=== PATIENT | female | born 1965 | race Caucasian/White ===

== ENCOUNTER 2024-02-27 12:12 | Inpatient (IN) | payer MEDICARE, OTHER ==
[2024-02-27] VITALS (7 sets, daily range): BP systolic 92–130; BP diastolic 47–82
[~2024-02-27] VITALS: Ht 165.1 cm; Wt 92.9 kg
--- OUTSIDE RECORDS SUMMARY | ~2024-02-27 | XMS | Continuity of Care Document ---
Demographics + + + | Address | [address] | | | [place] [address] | + + + | Preferred Language | Unknown | + + + | Marital Status | Unknown | + + + | Rastafari Affiliation | Unknown | + + + | Race | White | + + + | Ethnic Group | Not or | + + + Author + + + | Author | [facility] | + + + | Organization | [facility] | + + + | Address | [address] | | | [place] [address] | + + + | Phone | | + + + Care Team Providers + + + + | Care Commutator Repairer Name | Role | Phone | + + + + Unavailable | Unavailable | + + + + Allergies No information. Encounters No information. Functional Status No information. Immunizations No information. Medications No information. Problems + + + + | date | description | facility | + + + + | 2024-01-22 12:19:21 | Encounter for screening | [facility] | | | mammogram for malignant | | | | neoplasm of breast | | + + + + | 2024-01-23 00:49:24 | Encounter for screening | [facility] | | | mammogram for malignant | | | | neoplasm of breast | | + + + + Procedures No information. Results/Labs No information. Social History +--------+ + + | date | description | facility | +--------+ + + Vital Signs No information."
--- OUTSIDE RECORDS SUMMARY | ~2024-02-27 | XMS | Continuity of Care Document ---
Demographics + + + | Address | [address] | | | [place] [address] | + + + | Preferred Language | Unknown | + + + | Marital Status | Unknown | + + + | Christianity Affiliation | Unknown | + + + | Race | White | + + + | Ethnic Group | Not or | + + + Author + + + | Author | [facility] | + + + | Organization | [facility] | + + + | Address | [address] | | | [place] [address] | + + + | Phone | | + + + Care Team Providers + + + + | Care Air Traffic Control Operator Name | Role | Phone | + [...]
[~2024-02-27 12:12] MED LIST: ACETAMINOPHEN500 MG PO; ATORVASTATIN CA10 MG PO; BUPROPION XL300 MG PO; CARAFATE1 GM PO; CYANOCOBAL1000 MCG/M IM; ESCITALOPRAM OX20 MG PO; FOLIC ACID1 MG PO; GABAPENTIN100 MG PO; HYDROXYZINE HCL25 MG PO; LISINOPRIL20 MG PO; NICOTINE1 EAC2 TD; ONDANSETRON ODT4 MG PO; PANTOPRAZOLE SO40 MG PO; PRAZOSIN HCL2 MG PO; PROPRANOLOL HCL20 MG PO; TIZANIDINE HCL2 MG PO; TRAMADOL HCL50 MG PO; VITAMIN D21250 MCG PO
--- OUTSIDE RECORDS SUMMARY | 2024-02-27 12:18 | XMS ---
PreManage Notification: MANDY PHAN Security Calibration Specialist Events No recent Security Events currently on file CRITERIA MET - [facility] - 2 Visits in 30 Days CARE PROVIDERS ISAIAS QUINTANILLA Physician City Treasurer Current PHONE: Unknown Lloyd has no Care Guidelines for this patient. EKofi V[facility] COUNT (12 MO.) [facility] [address] [place] [address] TOTAL 3 NOTE: Visits indicate total known visits. ED/UCC VISIT TRACKING (12 MO.) 02/27/2024 12:12 [facility] [place] TYPE: Emergency COMPLAINT: - FALL 02/21/2024 01:56 [facility] [place] [facility] [place] TYPE: Emergency COMPLAINT: - Chest pain, unspecified DIAGNOSES: 1. Chest pain, unspecified 2. Hypoxemia 3. Cervicalgia 4. Polyneuropathy, unspecified 5. Essential (primary) hypertension 6. Vitamin B12 deficiency anemia, unspecified 7. Gastro-esophageal reflux disease without esophagitis 8. Other salvage determiner (current) drug therapy 06/09/2023 17:41 [facility] [place] TYPE: Emergency DIAGNOSES: 1. Cellulitis of abdominal wall 2. Abnormal findings on diagnostic imaging of other specified body structures 2. Essential (primary) hypertension 2. Other chcf (current) drug therapy 2. Pure hypercholesterolemia, unspecified 2. 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 - Obesity, unspecified - Obesity, unspecified - Other chronic pain - Other chronic pain - Other chcf (current) drug therapy - Other chcf (current) drug therapy - Personal history of nicotine dependence - Personal history of nicotine dependence - Personal history of other diseases of the digestive system - Personal history of other diseases of the digestive system - Problems related to living alone - Problems related to living alone - Pure hypercholesterolemia, unspecified - Pure hypercholesterolemia, unspecified - Pure hyperglyceridemia - Pure hyperglyceridemia - Unspecified intestinal obstruction, unspecified as to partial versus complete obstruction [email or web address]
[2024-02-27 13:19] LABS: BASOPHILS 1.7 % (0-2); EOSINOPHILS 2.7 % (0-6); HEMATOCRIT 29.6 % (35.0-50.0); HEMOGLOBIN 9.8 g/dL (12.0-18.0); LYMPHOCYTES 30.1 % (24-44); MCHC 32.9 g/dl (30-36); MCV 106.2 fl (81-99); MONOCYTES 8.9 % (0-12); NEUTROPHILS 56.6 % (39-80); PLATELET COUNT 326 K/uL (140-440); RBC 2.79 M/ul (4.3-5.7); RDW 13.8 (10.5-15.0)
[2024-02-27 13:30] LABS: INR 1.07 (0.80-1.30); PROTIME 13.2 Sec (11.2-14.2)
[2024-02-27 13:42] LABS: ALBUMIN 2.7 g/dL (3.4-5.0); ALBUMIN/GLOBULIN RATIO 0.69 (1.1-2.4); ANION GAP 13.8 (7-21); BILIRUBIN, TOTAL 0.5 ng/dL (0.2-1.0); BUN/CREATININE RATIO 11.45 (6.0-28.6); CALCIUM 8.8 mg/dL (8.5-10.1); CREATININE, SERUM 0.96 mg/dL (0.55-1.02); POTASSIUM 3.8 mmol/L (3.5-5.1); PROTEIN, TOTAL 6.6 g/dL (6.4-8.2)
[2024-02-27 13:53] LABS: INFLUENZA B NAA NEGATIVE (NEGATIVE); RESPIRATORY SYNCYTIAL VIR NAA NEGATIVE (NEGATIVE)
[2024-02-27] MEDS ORDERED: MAGNESIUM SULFATE 2 GM/50 ML BAG IV ONE (14:00)
[2024-02-27] MEDS ORDERED: FUROSEMIDE 40 MG/4 ML VIAL IV ONE (14:15)
[2024-02-27 14:42] LABS: AMPHETAMINES, URINE NEGATIVE (NEGATIVE); BARBITURATES, URINE NEGATIVE (NEGATIVE); BENZODIAZEPINE, URINE NEGATIVE (NEGATIVE); BUPRENORPHINE, URINE NEGATIVE (NEGATIVE); CANNABINOID, URINE NEGATIVE (NEGATIVE); COCAINE, URINE NEGATIVE (NEGATIVE); ECSTASY, URINE NEGATIVE (NEGATIVE); FENTANYL, URINE NEGATIVE (NEGATIVE); METHADONE, URINE NEGATIVE (NEGATIVE); OPIATES, URINE POSITIVE (NEGATIVE); OXYCODONE, URINE NEGATIVE (NEGATIVE); PHENCYCLIDINE, URINE NEGATIVE (NEGATIVE)
[2024-02-27 14:47] LABS: BILIRUBIN, URINE NEGATIVE (negative); BLOOD/HGB, URINE NEGATIVE (Negative); KETONE, URINE NEGATIVE (Negative); LEUK ESTERASE, URINE NEGATIVE (negative); NITRITE, URINE POSITIVE (negative)
[2024-02-27 14:53] LABS: EPITHELIAL CELLS, URINE SQUAMOUS 2+ /lpf (0-1+)
[2024-02-27 14:54] LABS: CRYSTALS, URINE NONE SEEN (0-1+); RED BLOOD CELLS, URINE 0-1 /hpf (0-5)
[2024-02-27 14:55] LABS: BACTERIA, URINE 3+ /hpf (negative); CASTS, URINE NONE SEEN \\lpf; COLLECTION TYPE, URINE CLEAN CATCH; REFLEX CULTURE, URINE No (No)
[2024-02-27] MEDS ORDERED: ACETAMINOPHEN 325 MG TAB PO PRN (15:30)
[2024-02-27] MEDS ORDERED: PROCHLORPERAZINE EDISYLATE 10 MG/2 ML VIAL IV PRN (15:30)
[2024-02-27] MEDS ORDERED: ondansetron HCL 4 MG/2 ML VIAL IV PRN (15:30)
[2024-02-27] MEDS ORDERED: TRAMADOL HCL 50 MG TAB ONE (15:35)
[2024-02-27] MEDS ORDERED: TRAMADOL HCL 50 MG TAB PO ONE (15:35)
--- NOTE | 2024-02-27 16:20 | NUR ---
Patient arrives to CCU room 127 from ER via stretcher. Patient A+O. Currently on 6L OM with SPO2 92%. Able to transfer self to bed with no difficulty, steady gait. LSC, HRR. On telemetry monitoring with prolonged QT and inverted T waves noted-- EKG however remains unchanged from prior records. Electrolytes WNL. Pt states no pain at this time, slight discomfort d/t urinary burning/UTI symptoms. Endorses chronic neuropathy in BLE. LLE edema noted. pulses intact, cap refill WNL. IV site flushes WNL. Ice water provided with regards to fluid restriction order. Pt uses BSC for frequent voids. Calls appropriately. Medications reconciled with home meds brought by patient who states "I take those and only those". Returned to pt room lock box.
[2024-02-27] MEDS ORDERED: ESTROVEN CMPLT M4 MG PO (16:59)
[2024-02-27] MEDS ORDERED: ESTROVEN MENOP1 EACH PO (17:00)
[2024-02-27] MEDS ORDERED: FLUOXETINE HCL20 MG PO (17:02)
--- NOTE | 2024-02-27 17:41 | NUR ---
Pt titrated by RT to 4L NC, continues to have spo2 readings from 86-89%. Titrated to 5L NC at this time. Pt provided with dinner tray. No needs at this time.
--- NOTE | 2024-02-27 18:03 | NUR ---
proof technician helper in room for scan. Patient resting in bed after voiding. Remains on 5L NC. VSS.
--- NOTE | 2024-02-27 18:39 | NUR ---
Call light answered, patient states needing cleaned up after ultrasound jelly, warm washcloths provided and patient assisted with gown change. Pt uses BSC, steady gait with no concerns for falls at this time other than existing lines/tubes. Pt on 5L NC and spo2 varies from 86-93% with the exertion. VSS. 1100 emptied from BSC. Pt denies further needs, call light in reach.
--- NOTE | 2024-02-27 19:26 | EKG ---
[facility] [address] [facility] [address] [place], [place] [address] Signed Normal sinus rhythm ST \T\ Marked T wave abnormality, consider anterolateral ischemia Prolonged QT Abnormal ECG No previous ECGs available Confirmed by Andreina Barron MD () on 02/27/2024 7:26:00 PM Electronically Signed By: ANDREINA BARRON MD 02/27/24 192 PATIENT NAME: MANDY PHAN Electrocardiogram DATE OF : 63 PHYSICIAN: ANDREINA BARRON MD REPORT #: [id number] REPORT IS CONFIDENTIAL AND NOT TO BE RELEASED WITHOUT AUTHORIZATION
--- NOTE | 2024-02-27 19:26 | EKG ---
[facility] [address] [facility] [place] [address] Signed Normal sinus rhythm ST \T\ Marked T wave abnormality, consider anterolateral ischemia Prolonged QT Abnormal ECG When compared with ECG of 27-FEB-2024 13:04, No significant change was found Confirmed by Andreina Barron MD () on 02/27/2024 7:26:17 PM Electronically Signed By: ANDREINA BARRON MD 02/27/24 1926 PATIENT NAME: MANDY PHAN Electrocardiogram DATE OF : 63 PHYSICIAN: ANDREINA BARRON MD REPORT #: [id number] REPORT IS CONFIDENTIAL AND NOT TO BE RELEASED WITHOUT AUTHORIZATION
[2024-02-27] MEDS ORDERED: ALBUTEROL SULFATE 0.083% 3 ML VIAL INH PRN (19:30)
--- NOTE | 2024-02-27 19:40 | NUR ---
REPORT RECEIVED FROM DAY SHIFT RN. PATIENT RESTING IN BED, WITH OXYGEN IN PLACE VIA NC ON 5L/MIN. SAO2 WNL AT THIS TIME 92% ON 5LO2 VIA NC. DENIES ANY NEEDS AT THIS TIME, CALL LIGHT WITHIN REACH.
--- NOTE | 2024-02-27 20:15 | NUR ---
PATIENT RESTING IN BED WATCHING TV. ALERT AND ORIENTED TO PERSON, PLACE, TIME AND LOCATION. LUNG SOUNDS CTA THROUGHOUT, DIMINISHED IN BASES. BOWEL TONES PRESENT X 4 QUADRANTS. PATIENT REPORTS PAIN IN HER LEFT SHOULDER WITH MOVEMENT. NO PAIN WHEN SHOULDER JOINT IS AT REST. EDEMA NOTED TO LLE NON PITTING. PEDAL PULSES BILATERAL PALPABLE. URINE IN BSC EMPTIED. PATIENT DENIES ANY SOB OR CHEST PAIN AT THIS TIME. REPORTS SHE FEELS SOB WITH INCREASED ACTIVITY. SAO2 IS 92% ON 4.5L NC. VSS, AFEBRILE AT THIS TIME. PATIENT GIVEN FRESH ICE WATER. NO FURTHER NEEDS AT THIS ITME. RT IN ROOM WITH PATIENT. CALL LIGHT WITHIN REACH.
[2024-02-27] MEDS ORDERED: PHENAZOPYRIDINE HCL 95 MG TAB PO PRN (20:30)
[2024-02-27] MEDS ORDERED: CEFTRIAXONE/SODIUM CHLORIDE 2 GM/100 ML PIGGYBACK IV SCH (21:00)
--- NOTE | 2024-02-27 21:09 | NUR ---
PATIENT JUST UP TO BEDSIDE COMMODE, SHE HAD A MEDIUM FORMED BM, VOIED 250ML YELLOW URINE. SHE IS RESTING IN BED AT THIS TIME ALERT AND ORIENTED, SHE REPORTS SHE FEELS A LOT BETTER NOW THAN WHEN SHE CAME INTO THE ED. SHE IS CURRENTLY ON 5L N.C. WITH HUMIDIFICATION APPLIED. SHE REPORTS NO FURTHER NEEDS AT THIS TIME.
--- NOTE | 2024-02-27 22:20 | NUR ---
PATIENT DESATURATING TO 86% ON 5L N.C., THIS RN INTO ROOM INCREASED OXYGEN TO 6L N.C., PATIENT IS NOTED TO RESTING IN BED EYES CLOSED RESPIRATIONS 16/MIN. NO DISTRESS NOTED. NOTED SIGNS OF POSSIBLE SLEEP APNEA. Angelica ONEILL CALLED TO COME AND ASSESS OXYGEN DELIVERY PATIENT DEMONSTRATES NEEDING MORE WHILE SLEEPING. Angelica ONEILL INTO ROOM, PLACED PATIENT TO HIGHFLOW N.C. AT 8L OXYGEN FLOW.
--- NOTE | 2024-02-27 22:28 | NUR ---
CHANGED TO HFNC AT 8 LPM AND IS NOW 91%.
--- NOTE | 2024-02-27 23:38 | NUR ---
PATIENT CALLED NURSES STATION TO REPORT SHE HAD USED THE BEDSIDE COMMODE, SHE HAD VOIDED 250ML ORANGE URINE (PYRIDIUM). SHE IS ALERT AND ORIENTED. SHE ASKED FOR SHERLEY CRACKERS AND A LEMON ZUNI SHAMA SODA. PATIENT HAS NO FURTHER REQUESTS OR QUESTIONS AT THIS TIME.
[2024-02-28] VITALS (9 sets, daily range): BP systolic 90–138; BP diastolic 50–89
--- NOTE | 2024-02-28 01:15 | NUR ---
PATIENT RESTING IN BED LAYING ON HER RIGHT SIDE. OXYGEN IN PLACE SAO2 93% ON 8L/HIFLO NC. RESPIRATIONS EVEN AND UNLABORED. CALL LIGHT WITHIN REACH.
--- NOTE | 2024-02-28 01:24 | NUR ---
PATIENT UP TO BSC. DESATURATION NOTED DURING TRANSFER DOWN TO 86%. RECOVERED QUICKLY. PATIENT DENEIS ANY DIZZYNESS, DENIES ANY BURNING WHILE VOIDING. PATIENT BACK IN BED. NO FURTHER NEEDS AT THIS TIME. CALL LIGHT WITHIN REACH.
--- NOTE | 2024-02-28 04:16 | NUR ---
PATIENT RESTING IN BED WITH EYES CLOSED. RESPIRATIONS EVEN AND UNLABORED. VSS. SAO2 WNL. CALL LIGHT WITHIN REACH.
[2024-02-28 05:15] LABS: EOSINOPHILS 2.6 % (0-6); HEMATOCRIT 28.1 % (35.0-50.0); HEMOGLOBIN 9.5 g/dL (12.0-18.0); LYMPHOCYTES 34.4 % (24-44); MCH 35.6 (27-36); MCHC 33.7 g/dl (30-36); MCV 105.7 fl (81-99); MONOCYTES 10.5 % (0-12); NEUTROPHILS 51.5 % (39-80); PLATELET COUNT 306 K/uL (140-440); RBC 2.66 M/ul (4.3-5.7); RDW 13.8 (10.5-15.0)
--- NOTE | 2024-02-28 05:30 | NUR ---
PATIENT TO BSC WITH STAND BY ASSIST TOLLERATED TRANSFER TO [facility]. DESATURATED TO 86% WITH TRANSFER BACK TO BED. ABLE TO RECOVER QUICKLY PATIENT SAO2 WNL ON 6.5L HIFLO NC. LUNGS CTA UN BILATERAL UPPER LOBES DIM IN BASES LEFT LOWER MILD CRACKLES NOTED. PATIENT C/O PAIN TO LEFT SHOULDER WELL GENERALIZED ACHES AND PAINS. REQUESTING HER HOME MEDICATIONS BE RESTARTED. PRN GIVEN FOR PAIN SEE AUG. DENIES ANY CHEST PAIN, ONLY C/O SOB AFTER TRANSFER BACK INTO BED. DAILY WEIGHT OBTAINED. NO FURTHER NEEDS AT THIS TIME. CALL LIGHT WITHIN REACH.
[2024-02-28 05:32] LABS: ALBUMIN 2.6 g/dL (3.4-5.0); ALBUMIN/GLOBULIN RATIO 0.72 (1.1-2.4); ANION GAP 10.4 (7-21); BILIRUBIN, TOTAL 0.3 ng/dL (0.2-1.0); CALCIUM 8.5 mg/dL (8.5-10.1); MAGNESIUM 1.9 mg/dL (1.8-2.4); PHOSPHORUS, INORGANIC 4.2 mg/dL (2.5-4.9); POTASSIUM 3.4 mmol/L (3.5-5.1); PROTEIN, TOTAL 6.2 g/dL (6.4-8.2)
--- NOTE | 2024-02-28 06:28 | NUR ---
MD NOTIFIED VIA TELEPHONE OF PATIENTS C/O PAIN AND INEFFECTIVE PAIN CONTORL WITH TYLENOL. NEW ORDERS RECEIVED AND VERIFIED VIA VERBAL READ BACK. MD UPDATED ON PATIENT'S INCREASED OXYGEN NEEDS THOUGHOUT THIS SHIFT.
[2024-02-28] MEDS ORDERED: TRAMADOL HCL 50 MG TAB PO PRN (06:30)
[2024-02-28] MEDS ORDERED: POTASSIUM CHLORIDE 10 MEQ TABCR PO ONE (07:15)
--- NOTE | 2024-02-28 07:15 | NUR ---
Report received from warehouse shift supervisor RN. Patient resting in bed with even and unlabored respirations, no needs identified at this time. Will continue plan of care.
[2024-02-28] MEDS ORDERED: ALBUTEROL/IPRATROPIUM 3 ML NEB INH SCH (08:00)
--- NOTE | 2024-02-28 08:30 | NUR ---
Scheduled medications administered and assessment complete. Patient able to take PO K replacement whole with water. Denies SOB, chest pain. Endorses L shoulder pain and would like to speak with Dr upon his rounds to discuss possible imaging. Patient also concerned about receiving her home medications, content to also discuss with Dr with rounds. Breakfast tray delivered. No needs at this time.
[2024-02-28] MEDS ORDERED: FUROSEMIDE 40 MG/4 ML VIAL IV SCH (09:00)
[2024-02-28] MEDS ORDERED: ELECTROLTYTE REPLACEMEMT CCU 1 EACH EA PO/IV SCH (09:00)
[2024-02-28] MEDS ORDERED: ENOXAPARIN SODIUM 40 MG/0.4 ML SYR SUB-Q SCH (09:00)
--- NOTE | 2024-02-28 09:23 | NUR ---
Patient noted to be desaturating on SPO2 monitor to 79% with a good pleth. This RN to room, patient had transfered self to BSC to have BM. Increased o2 via NC to 10L. Patient recovers to 94%. Large BM washed from commode, 700 UOP noted to be orange d/t PRN medications. Pt denies further needs.
--- NOTE | 2024-02-28 10:38 | NUR ---
PT HAS BEEN REQUIRING MORE OXYGEN THIS AM ,SPO2 IS 88-91% ON 10LPM , THERAPY WAS IN THE ROOM TO WORK WITH PATIENT AND THEY REQUIRED 15LPM TO MAINTAIN A SPO2 OF 88-91% . TITO BARRON NOTIFYED AND HE WILL ORDER XRAY AND IS IS OKAY MOVING FORWARD WITH CPAP FOR THIS PATIENT .
--- NOTE | 2024-02-28 10:47 | NUR ---
Physical therapy in room to work with patient, RT Smith and this RN at bedside. Patient ultimately requiring 15L OM to maintain spo2 89-94% while working with therapy. Strength and mobility WNL. Patient sitting up to chair. 700 UOP noted in BSC. Linens changed and room tidied.
[2024-02-28] MEDS ORDERED: LIDOCAINE HCL 4% 1 EACH PATCH TD SCH (11:04)
--- NOTE | 2024-02-28 11:54 | EKG ---
[facility] [address] [place] [address] Signed Normal sinus rhythm ST \T\ Marked T wave abnormality, consider anterolateral ischemia Prolonged QT Abnormal ECG When compared with ECG of 27-FEB-2024 14:46, No significant change was found Confirmed by Andreina Barron MD () on 02/28/2024 11:54:38 AM Electronically Signed By: ANDREINA BARRON MD 02/28/24 1154 PATIENT NAME: MANDY PHAN Electrocardiogram DATE OF : 63 PHYSICIAN: ANDREINA BARRON MD REPORT #: [id number] REPORT IS CONFIDENTIAL AND NOT TO BE RELEASED WITHOUT AUTHORIZATION
[2024-02-28] MEDS ORDERED: PHARMACY RENAL DOSE ADJUSTMENT 1 DOSE MISC PO SCH (12:00)
--- NOTE | 2024-02-28 12:20 | NUR ---
Assessment complete, patient would like to eat lunch and then begin CPAP therapy. Patient sitting up to chair and tolerating well at this time with no reports of SOB.
--- NOTE | 2024-02-28 12:30 | NUR ---
PT ABG RESULTS BACK , TREATMENT GIVEN WILL START CPAP AFTER PATIENT HAS LUNCH
[2024-02-28 12:36] LABS: BASE EXCESS, BLOOD GAS 5.1 mmol/L (-2-2); HCO3, BLOOD GAS 26.7 mmol/L (22-26); O2 SATURATION, BLOOD GAS 91.5 % (95.0-100.0); PCO2, BLOOD GAS 28.1 mmHg (35-45); PH, BLOOD GAS 7.58 (7.35-7.45); PO2, BLOOD GAS 55 mmHg (80-100); TOTAL CO2, BLOOD GAS 27.5
--- NOTE | 2024-02-28 13:30 | NUR ---
PT STARTED ON CPAP OF 8 , 35% WILL CONTINUE TO MONITOR OXYGEN REQUIREMENTS
--- NOTE | 2024-02-28 16:04 | NUR ---
Patient assessment complete, resting in bed at this time. VSS. Afebrile. Patient has been able to transfer self back and forth to the [facility] with limited SOB. Tolerated cpap therapy well and is now >96% on 5 L.
--- NOTE | 2024-02-28 17:00 | NUR ---
PT REFUSED 1600 TREATMENT SHE JUST WANTED TO REST
--- NOTE | 2024-02-28 17:50 | NUR ---
Patient resting in bed with NC in place, spo2 91%. No needs identified at this time, even and unlabored respirations noted.
--- NOTE | 2024-02-28 19:55 | NUR ---
ROUNDING ON PATIENT, SHE REPORTS PAIN 6/10 LEFT SHOULDER AND GENERALIZED, SHE IS RESTING IN BED, DISCUSSED WEARING THE CPAP TONIGHT, SHE VERBALIZED NOT WANTING TO, THIS RN AND NINO Dominguez GAVE EDUCATION, PATIENT THEN SAID MAYBE LATER. PATIENT ALSO CONCERNS ABOUT NOT HAVING SOME OF HER HOME MEDICATIONS.
--- NOTE | 2024-02-28 20:45 | NUR ---
CALLED TO ASK IF IT IS POSSIBLE TO START SOME OF PATIENTS HOME MEDICATIONS SHE IS CONCERNED ABOUT. SAID HE WILL ORDER THEM.
[2024-02-28] MEDS ORDERED: hydrOXYzine pamoate 25 MG CAP PO PRN (21:00)
[2024-02-28] MEDS ORDERED: LIDOCAINE PATCH REMOVAL 1 EA TD SCH (21:00)
[2024-02-28] MEDS ORDERED: ERGOCALCIFEROL 50,000 UNITS CAP PO SCH (21:00)
[2024-02-28] MEDS ORDERED: GABAPENTIN 300 MG CAP PO SCH (21:00)
[2024-02-28] MEDS ORDERED: PANTOPRAZOLE SODIUM 40 MG TABEC PO SCH (21:00)
[2024-02-28] MEDS ORDERED: GUAIFENESIN/DEXTROMETHORPHAN 5 ML SYRUP PO PRN (22:30)
[2024-02-28] MEDS ORDERED: BENZONATATE 100 MG CAP PO PRN (22:30)
--- NOTE | 2024-02-28 23:26 | NUR ---
PATIENT ROUNDING, ADMINISTERED COUGH REGIME, SEE EMAR PRN. SHE HAD A CONSISTANT COUGH SINCE THE START OF THIS SHIFT, SHE ALSO REPORTS KOENIG DUE TO COUGH. PATIENT DECLINED WANTING TYLENOL AT THIS TIME.
[2024-02-29] VITALS (10 sets, daily range): BP systolic 127–173; BP diastolic 75–113
--- NOTE | 2024-02-29 03:00 | NUR ---
PATIENT LAYING FLAT IN BED ON HER LEFT SIDE, HER OXYGEN IS DESATURATING TO 86-87%, TITRATED UP OXYGEN TO 8L HIGH FLOW N.C., PATIENT CONTINUED TO 87-88% OXYGEN SATURATION, THIS RN PROMPTED PATIENT TO REPOSITION, OXYEN SATURATION IMPROVED TO 94%.
[2024-02-29 05:05] LABS: BASOPHILS 0.7 % (0-2); EOSINOPHILS 2.7 % (0-6); HEMATOCRIT 31.7 % (35.0-50.0); HEMOGLOBIN 10.4 g/dL (12.0-18.0); LYMPHOCYTES 37.6 % (24-44); MCH 34.5 (27-36); MCHC 32.7 g/dl (30-36); MCV 105.5 fl (81-99); MONOCYTES 10.4 % (0-12); NEUTROPHILS 48.6 % (39-80); PLATELET COUNT 382 K/uL (140-440); RDW 13.9 (10.5-15.0)
[2024-02-29 05:24] LABS: ANION GAP 10.4 (7-21); BUN/CREATININE RATIO 8.08 (6.0-28.6); CALCIUM 9.1 mg/dL (8.5-10.1); CREATININE, SERUM 0.99 mg/dL (0.55-1.02); POTASSIUM 3.4 mmol/L (3.5-5.1)
[2024-02-29] MEDS ORDERED: POTASSIUM CHLORIDE 10 MEQ TABCR PO ONE ×2 (05:45→08:45)
--- NOTE | 2024-02-29 06:14 | NUR ---
PATIENT RESTING IN BED, ALERT TO THIS RN AT BEDSIDE. V/S, AND AM ASSESSMENT COMPLETE. PATIENT ASKED, "WILL I BE ABLE TO GET MY COUGH SYRUP TODAY?" THIS RN SAID, "YES, IT IS AVAILBLE NOW." WILL PROVIDE.
--- NOTE | 2024-02-29 07:15 | NUR ---
Report received from Tara BUCIO. Patient resting in bed with eyes closed, even and unlabored respirations noted with NC. No needs identified at this time, will continue plan of care.
--- NOTE | 2024-02-29 08:30 | NUR ---
Rounded on patient who is resting in bed with eyes closed. RR even and unlabored. Breakfast tray set in room, no needs identified at this time, call light in reach
[2024-02-29] MEDS ORDERED: FLUOXETINE HCL 20 MG CAP PO SCH (09:00)
[2024-02-29] MEDS ORDERED: ESTROVEN TABLET PO SCH (09:00)
--- NOTE | 2024-02-29 11:38 | NUR ---
medications recoincled using pharmacy records, visual inspection of RX vials and patient interview. She will be taking her own Estroven supplement
--- NOTE | 2024-02-29 11:50 | NUR ---
Lunch tray delivered, this RN in room for patient rounding and assessment, patient is up to the BSC, refuses transfering to chair at this time and opts for bed. States "Im feeling pretty good". Remains hypoxic with exertion and requires titration of o2 to remain above 90%. Declines assistance and denies needs
--- NOTE | 2024-02-29 12:13 | NUR ---
This RN rounds on patient for 12pm vitals. Oral temp 100.0. Patient states feeling chilled. Requests PRN tylenol for a 7/10 headache, administered. Physical therapy in room to work with patient, patient declines at this time despite encouragement from care team. Remains on 8L NC with spo2 92% at rest.
--- NOTE | 2024-02-29 14:45 | NUR ---
Rounded on patient who states willing to use CPAP machine. VSS, I/Os charted, assisted with CPAP set up for patient. Pt requests PRN cough medication, administered. Rechecked temp 98.3 oral. Ice water provided. Patient has no needs at this time, call light in reach
--- NOTE | 2024-02-29 16:27 | NUR ---
Patient sitting up in bed with CPAP mask in place, spo2 94%, noted as high as 100% on 8L/40% fio2. Patient watching TV. States no needs at this time. Call light in reach.
--- NOTE | 2024-02-29 20:00 | NUR ---
PATIENT SITTING UP IN BED ALERT AND ORIENTED, WATCHING TV. SHE REPORTS SHE IS FEELING BETTER NOW THAN FROM THIS AM. ASSESSMENT COMPLETE, DISCUSSED PLAN OF CARE FOR TONIGHT, MEDICATIONS AND RESPIRATORY/CPAP. PATIENT ASKED FOR SPRITE, LEMON RUBY SODA PROVIDED, SHE IS WELL WITHIN HER FLUID RESTICTION ORDERS AT THIS TIME. CALL LIGHT IN REACH, PATIENT HAS BEEN INDEPENDENT TO BESIDE COMMODE.
[2024-03-01 00:11] VITALS: BP 152/91
--- NOTE | 2024-03-01 00:13 | NUR ---
PATIENT CALLED TO REQUEST TESSLON NATHANIEL FOR COUGH AND TYENOL PRN, SHE ALSO FELT A NEB TX WOULD HELP HER WITH SOB AND COUGH. RACHAEL CALLED AND HE ASKED FOR THIS RN TO ADMINISTER. PATIENT HAS NO FURTHER NEEDS OR QUESTIONS, ASSESSMENT COMPLETE.
[2024-03-01 03:42] LABS: IRON,SERUM OR PLASMA 42 ug/dL (28-170)
[2024-03-01 04:07] VITALS: BP 110/83
--- NOTE | 2024-03-01 05:15 | NUR ---
PATIENT HAS SLEPT INTERMITTENLY OVER SHIFT, WAKING OFTEN DUE TO VOIDING, AND OXYGEN SATURATION DROPPING DUE TO BODY POSITION IN BED OR HAVING N.C. OUT OF NOSE. SHE HAS REQUIRED COUGH MEDICATIONS OF SHIFT. SHE HAS HAD A SNACK OF PEANUT BUTTER/JELLY AND CRACKERS, WITH PUDDING AND COOKIES. SHE HAS CONTINUED TO REQUIRE 6-8L OXYGEN VIA HIGH FLOW N.C., SHE HAS DECLINED TO USE CPAP OVER NIGHT.
[2024-03-01 06:04] LABS: ANION GAP 11.5 (7-21); BUN/CREATININE RATIO 9.52 (6.0-28.6); CALCIUM 9.3 mg/dL (8.5-10.1); CREATININE, SERUM 1.05 mg/dL (0.55-1.02); MAGNESIUM 1.7 mg/dL (1.8-2.4); POTASSIUM 3.5 mmol/L (3.5-5.1)
[2024-03-01] MEDS ORDERED: MAGNESIUM SULFATE 2 GM/50 ML BAG IV ONE (06:30)
[2024-03-01] MEDS ORDERED: POTASSIUM CHLORIDE 10 MEQ TABCR PO ONE (06:30)
--- NOTE | 2024-03-01 07:20 | NUR ---
Report received from Tara BUCIO. Patient resting in bed with NC in place, VSS, no needs identified at this time. Will continue plan of care.
[2024-03-01 08:15] VITALS: BP 131/75
--- NOTE | 2024-03-01 08:16 | NUR ---
Scheduled medications administered and assessment complete. Patient resting in bed with NC in place at 7L, VSS. Respirations even and unlabored. Patient states having cough, requests PRN medications, provided. Patient given PRN tramadol. Breakfast tray delivered and patient repositioned in bed.
[2024-03-01] MEDS ORDERED: lisinopriL 20 MG TAB PO SCH (09:00)
[2024-03-01] MEDS ORDERED: ERGOCALCIFEROL 50,000 UNITS CAP PO SCH (09:00)
--- NOTE | 2024-03-01 11:06 | NUR ---
Patient alert and oriented. States she lives in a room, 15 stairs to get to her room. States she normally does ok with the stairs. She was recently set up with home oxygen through [facility] prior to admission. States she has no other DME. She does not drive. Transportation is usually provided by her mother, or [facility] for medical appointments. Denies any financial issues. She is able to pay utilities, housing, food and medications. States she does get food stamps. States she has no needs at home, but will notify staff if she thinks of anything. She is planning on returning home at discharge.
--- NOTE | 2024-03-01 11:15 | NUR ---
Rounded on patient, requesting PRN tylenol for 10/ headache, provided. Patient on 6L NC at this moment with SPO2 92%. Right upper lobe coarse, otherwise clear, patient endorses continued cough. Made plan for PRN medications when available. Patient denies needs at this time.
[2024-03-01 12:00] VITALS: BP 144/98
[2024-03-01] MEDS ORDERED: AZITHROMYCIN 250 MG TAB PO SCH (12:01)
[2024-03-01] MEDS ORDERED: predniSONE 20 MG TAB PO SCH (12:01)
--- NOTE | 2024-03-01 12:45 | NUR ---
Scheduled medications administered and assessment complete. Patient sitting up in chair after working with physical therapy. Explained new medications, steroid and antibiotic therapy, and patient receptive to information, will continue to reinforce education. Fresh ice water provided. No further needs at this time. Call light in reach.
--- NOTE | 2024-03-01 14:35 | NUR ---
UR CLINICAL/CONCURRENT REVIEW: [facility]-MEETS INPT GUIDELINE FOR CHF. DOES NOT MEET GL DAY 2, VIARANCE COMPLETE [facility] INPT 02/27/24 @ 2510 ORDER MATCHES REG CLINICAL FAXED FOR AUTH REVIEW DISCHARGE TO HOME WHEN STABLE 03/04/24
--- NOTE | 2024-03-01 16:00 | NUR ---
IN PATIENT'S ROOM FOR VITALS. PT RESTING IN BED ON 5 L NC. PT DENIES NEEDS. COMMODE EMPTIED FOR 1700 ML PLUS A STOOL. WATER REFILLED AND SODA PROVIDED. PT WANTING TO REST.
[2024-03-01 16:27] VITALS: BP 135/83
[2024-03-01 22:24] VITALS: BP 164/105
[2024-03-02] VITALS (8 sets, daily range): BP systolic 124–158; BP diastolic 81–99
--- NOTE | 2024-03-02 01:21 | NUR ---
RAOUNDING ON PATIENT, SHE REPORTS SHE HAS BEEN ABLE TO SLEEP, SHE REPORTS SHE FEELS SO MUCH BETTER TONIGHT. SHE HAS TO REQUESTS OR CONCERNS
--- NOTE | 2024-03-02 04:15 | NUR ---
PATIENT OXYGEN DESATURATING TO 85% ON MONITOR, THIS RN INTO PATIENT ROOM TO ASSESS, NOTED THAT PATIENT N.C. AT PULLED UP ON HER FACE ACROSS HER EYES, N.C. PLACED BACK IN NARES, SHE RECOVERED TO 92% OXYGEN SATURATION. PATIENT ALERT THIS RN AT BEDSIDE.
--- NOTE | 2024-03-02 04:45 | NUR ---
PATIENT OXYGEN DESAT TO 85% THIS RN INTO PATIENT ROOM TO ASSESS, PATIENT IS ALERT AND ORIENTED PLACEING N.C. BACK ON HER FACE HERSELF. SHE RECOVERED TO 92% OXYGEN SATURATION, FULL AM ASSESSMENT COMPLETE, PATIENT PROVIDED A WARM BLANKET THIS AM. NO OTHER REQUESTS. NO NEW CONCERNS.PATIENT RESPIRATORY STATUS HAS SHOWN IMPROVEMENT OVER LAST 24 HOURS, LESS WORK OF BREATHING, LESS DYSPNEA WITH ACTIVITY, LESS OXYGEN REQUIREMENTS.
[2024-03-02 05:31] LABS: BASOPHILS 0.7 % (0-2); EOSINOPHILS 0.1 % (0-6); HEMATOCRIT 33.1 % (35.0-50.0); HEMOGLOBIN 10.8 g/dL (12.0-18.0); LYMPHOCYTES 21.7 % (24-44); MCH 34.4 (27-36); MCHC 32.7 g/dl (30-36); MCV 105.4 fl (81-99); MONOCYTES 7.5 % (0-12); PLATELET COUNT 442 K/uL (140-440); RBC 3.14 M/ul (4.3-5.7); RDW 13.3 (10.5-15.0)
[2024-03-02 05:42] LABS: ANION GAP 13.1 (7-21); BUN/CREATININE RATIO 12.87 (6.0-28.6); CALCIUM 9.8 mg/dL (8.5-10.1); CREATININE, SERUM 1.01 mg/dL (0.55-1.02); POTASSIUM 4.1 mmol/L (3.5-5.1)
--- NOTE | 2024-03-02 08:43 | NUR ---
AM ASSESSMENT COMPLETE. PT NOW ON 3 L NC, WHICH IS HER HOME OXYGEN USE AMOUNT, HOWEVER THE OXYGEN IN GENERAL IS RATHER NEW TO HER SINCE HER ER VISIT IN [place]. PT CONTINUES TO HAVE THE T WAVE ABNORMALITIES (INVERTED T WAVES) IN LEADS II, III, AND aVF ON ARC CUTTER PLASMA ARC. PT REMAINS CHEST PAIN FREE. AM MEDS GIVEN W/O DIFFICULTY. PRN PAIN AND COUGH MEDS ALSO GIVEN. LUNG SOUNDS ARE CLEAR. PT REPORTS FEELING MUCH BETTER, AND NOTES THE IMPROVEMENT IN HER LEGS WITH THE DECREASE IN SWELLING. PT WANTING TO TAKE A SHOWER THIS AM AND WILL HELP HER DO THAT. WILL CONTINUE TO MONITOR.
--- NOTE | 2024-03-02 09:13 | NUR ---
PATIENT UP IN SHOWER AND ABLE TO AMBULATE TO SHOWER ROOM DOWN THE GRADY. PT ON 4 L FOR THIS ACTIVITY. PT DENIES NEED HELPING SHOWER AND IS DOING WELL.
--- NOTE | 2024-03-02 10:12 | NUR ---
SITTING UP IN RECLINER. STATES SHE IS FEELING MUCH BETTER. CONTINUES TO DENY ANY CASE MANAGEMENT NEEDS AT THIS TIME. STAFF NOTIFIED SHE HAS NO NEEDS AT THIS TIME.
--- NOTE | 2024-03-02 10:25 | NUR ---
Upon entering Ms. Abreu's room I find her up in the bedside chair, well groomed and smiling. I introduced myself and found Mr. Abreu to be oriented to person, place and time. We discussed her care, which she felt has been "wonderful" and her potential discharge in the next 1 - 2 days. Ms. Abreu is anxious to discharge to home when the feels that she is ready. I also explained the IMM letter to her, she states no questions or concerns regarding signing the letter and does in fact sign the letter during this conversation which includes her discharge in the next 1 to 2 days. A copy of the signed letter is also left in the room with Ms. Abreu.
[2024-03-02] MEDS ORDERED: EMPAGLIFLOZIN 10 MG TAB PO SCH (10:48)
--- NOTE | 2024-03-02 11:12 | NUR ---
PATIENT WORKING WITH PHYS THERAPY AT THIS TIME. PT REMAINS ON 3 L. NEW MED JARDIANCE TO BE STARTED ON PATIENT DUE TO HER CHF DIAGNOSIS. EDUCATION TO BE PROVIDED.
--- NOTE | 2024-03-02 13:17 | NUR ---
DR. LONDON IN ROOM TO SEE PATIENT AT THIS TIME. PLAN OF CARE BEING DISCUSSED. PATIENT ON 2.5 L OXYGEN AT THIS TIME.
--- NOTE | 2024-03-02 13:53 | NUR ---
VISITED DURING SPIRITUAL CARE ROUNDS. PT IN [employer], REQUESTED BIBLE. CARD SERVICES SPECIALIST PROVIDED SUPPORTIVE PRESENCE, HOSPITALITY, SACRED TEXT, PRAYER. PT EXPRESSED GRATITUDE.
--- NOTE | 2024-03-02 14:45 | NUR ---
REPORT GIVEN TO ELVA WHO WILL RESUME CARE OF PATIENT ON MEDICAL FLOOR. PT WILL NOT HAVE TELEMETRY MONITORING. PATIENT TRANSFERRED TO ROOM 119 IN CHAIR WITH ALL PERSONAL BELONGINGS. PT ON 3 L NC UPON TRANSFER.
--- NOTE | 2024-03-02 14:46 | NUR ---
New admit to the medical floor. Patient awake, alert and oriented x4, no acute distress. Patient up to restroom to void. Patient is on room air, respirations non labored. Patient denies chest pain. No needs at this time, personal supplies and call light within reach.
[2024-03-02 17:03] LABS: ALBUMIN 3.5 g/dL (3.4-5.0); ALBUMIN/GLOBULIN RATIO 0.73 (1.1-2.4); ANION GAP 17.2 (7-21); BILIRUBIN, TOTAL 0.3 ng/dL (0.2-1.0); BUN/CREATININE RATIO 13.43 (6.0-28.6); CALCIUM 10.2 mg/dL (8.5-10.1); CREATININE, SERUM 1.34 mg/dL (0.55-1.02); POTASSIUM 4.2 mmol/L (3.5-5.1); PROTEIN, TOTAL 8.3 g/dL (6.4-8.2)
--- NOTE | 2024-03-02 17:11 | NUR ---
ADMIN ONE TESSALON PERLES PO AND VISTARIL 25MG PO FOR REPORTS OF ANXIETY AND COUGH. PATIENT SITTING UP EATING DINNER AT THIS TIME, NO ACUTE DISTRESS. PATIENT REMAINS ON 3L OXYGEN PER NC, RESPIRATIONS NON LABORED.
--- NOTE | 2024-03-02 18:51 | NUR ---
Admin tylenol 650mg po for reports of 5/10 headache.
--- NOTE | 2024-03-02 19:35 | NUR ---
call light answered, pt sba back in bed from bsc-voided 400mls. call light in reach, no further needs or concerns. primary rn abram eason.
--- NOTE | 2024-03-02 19:35 | NUR ---
RECEIVED REPORT FROM DAY SHIFT RN. PATIENT IS RESTING IN BED. PATIENT DENIES ANY NEEDS AT THIS TIME. CALL LIGHT IN REACH.
--- NOTE | 2024-03-02 20:22 | NUR ---
PATIENTS VITALS TAKEN AND RECORDED. PATIENTS INTAKE AND OUTPUT RECORDED. PATIENTS ASSESMENT COMPLETED. PATIENT IS ON 3L VIA NC. PATIENT DENIES ANY SOB. PATIENT REPORTS 4/10 GENERALIZED, PRN PAIN MEDICATION GIVEN PER ORDER. PATIENTS PM MEDS GIVEN PER ORDER. PATIENT DENIES ANY NAUSEA. PATIENT UP TO BSC AND ABLE TO VOID. PATIENT IS BCAK IN BED RESTING. CPOX IN USE. PATIENT DENIES ANY FURTHER NEEDS. CALL LIGHT AND BELONGINGS ARE WITHIN REACH.
--- NOTE | 2024-03-02 22:09 | NUR ---
PATIENT IS RESTING IN BED ON RIGHT SIDE WITH EYES CLOSED, CPOX READINGS ARE WNL. PATIENTS CALL LIGHT IN REACH.
--- NOTE | 2024-03-02 23:52 | NUR ---
PATIENT CAN BE HEARD COUGHING FROM RN STATION. THIS RN INTO PATIENTS ROOM. PATIENT GIVEN PRN COUCH MEDICATION. PATIENT REQUESTING NEB FOR SOB. RT IN ROOM TO ADMIN NEB. PATIENTS CPOX READINGS ARE WNL. PATIENT REMAINS ON 3L VIA NC. NO FURTHER NEEDS NOTED. CALL LIGHT IN REACH.
--- NOTE | 2024-03-03 02:08 | NUR ---
PATIENT IS RESTING IN BED ON STOMACH WITH EYES CLSOED, CPOX READINGS ARE WNL. PATIENT REMAINS ON 3L VIA NC. NAD NOTED. CALL LIGHT IN REACH.
--- NOTE | 2024-03-03 04:06 | NUR ---
PATIENT IS RESTING IN BED WITH EYES CLSOED, CPOX READINGS ARE WNL. PATIENTS CALL LIGHT IN REACH.
[2024-03-03 05:10] VITALS: BP 136/78
[2024-03-03 05:13] VITALS: BP 136/78
--- NOTE | 2024-03-03 05:14 | NUR ---
LAB IN ROOM. PATIENTS VITALS TAKEN AND RECORDED. INTAKE AND OUTPUT RECORDED. PATIENT REPORTS 7/10 GENERALIZED PAIN, PRN PAIN MEDICATION. PATIENT GIVEN PRN COUGH MEDICATION PER REQUEST. PATIENTS IV FLUSHED AND SL PER ORDER. PATIENT GIVEN 300ML OF FREE WATER. PATIENT DENIES ANY SOB. PATIENT DENIES ANY FURTHER NEEDS. PATIENT DOES NOT WISH TO GET UP FOR AT THIS TIME. PATIENT EDUCATED TO CALL NEXT TIME SHE IS UP TO BSC. PATIENT VERBALIZES UNDERSTANDING AND AGREES TO PLAN.
[2024-03-03 05:28] LABS: BASOPHILS 0.9 % (0-2); EOSINOPHILS 0.4 % (0-6); HEMATOCRIT 31.1 % (35.0-50.0); HEMOGLOBIN 10.5 g/dL (12.0-18.0); MCH 35.2 (27-36); MCHC 33.7 g/dl (30-36); MCV 104.6 fl (81-99); MONOCYTES 7.4 % (0-12); NEUTROPHILS 64.3 % (39-80); PLATELET COUNT 418 K/uL (140-440); RBC 2.98 M/ul (4.3-5.7); RDW 13.7 (10.5-15.0)
--- NOTE | 2024-03-03 06:29 | NUR ---
PATIENT IS RESTING IN BED WITH EYES CLSOED, CPOX READINGS ARE WNL. CALL LIGHT IN REACH.
[2024-03-03 07:54] LABS: PROCALCITONIN 0.05 ng/mL (())
[2024-03-03] MEDS ORDERED: FOLIC ACID 1 MG TAB PO SCH (08:00)
--- NOTE | 2024-03-03 08:00 | NUR ---
Admin robitussin po and vistaril 25mg po for reports of anxiety and cough.
[2024-03-03] MEDS ORDERED: CYANOCOBALAMIN 1,000 MCG TAB PO SCH (09:00)
--- NOTE | 2024-03-03 09:08 | NUR ---
Patient awake, alert and oriented x4, no acute distress. Patient reports she slept well last time. Patient denies shortness of breath at rest. Daily weight obtained per order. Patient also denies chest pain. Pt on 3L oxygen per nc, sp02 94% at this time. Patient denies needs, personal supplies and call light within reach.
--- NOTE | 2024-03-03 09:29 | NUR ---
DISCUSSED DC PLAN. PREFERS TO DO OUTPATIENT THERAPIES. STATES SHE HAS NO ISSUES WITH TRANSPORTATION TO APPOINTMENTS. PATIENT STATES [facility] [address] [address], NO CONCERNS ABOUT ABILITY TO GET FOOD. Padmini BUTTERFIELD RN/CHARGE NURSE NOTIFIED.
[2024-03-03 10:09] VITALS: BP 145/81
--- NOTE | 2024-03-03 10:10 | NUR ---
PATIENT SITTING AT SIDE OF BED. VITALS AND I&OS CHARTED. BSC EMPTIED AND CLEANED. CALL LIGHT IN EASY REACH, NO OTHER NEEDS AT THIS TIME
[2024-03-03 10:33] VITALS: BP 145/81
--- NOTE | 2024-03-03 10:57 | NUR ---
VISITED DURING SPIRITUAL CARE ROUNDS. PT APPEARED TO BE SLEEPING. DID NOT DISTURB. PROVIDED PRAYER.
--- NOTE | 2024-03-03 11:23 | NUR ---
Patient sitting up on edge of bed watching tv, no acute distress. Patient on 3L oxygen per nc, sp02 94%, respirations non labored. Patient denies needs, personal supplies and call light within reach.
[2024-03-03] MEDS ORDERED: IPRAT-ALBUT 0.5-3 ML INH (11:59)
[2024-03-03] MEDS ORDERED: ALBUTEROL2.5 MG/3 M INH (12:00)
[2024-03-03] MEDS ORDERED: PREDNISONE20 MG PO (12:01)
[2024-03-03] MEDS ORDERED: VITAMIN B-121000 MCG PO (12:01)
[2024-03-03] MEDS ORDERED: JARDIANCE10 MG PO (12:01)
[2024-03-03] MEDS ORDERED: SPIRONOLACTONE50 MG PO (12:02)
[2024-03-03 12:09] VITALS: BP 151/86
== END 2024-03-03 12:45 | disposition home or self-care (01) | DRG 291 ==
LOC: ED 12:12 → CCU 15:53 → MS 03-02 14:38
PROVIDERS: Emergency Medicine; Student in an Organized Health Care Education/Training Program; ADMIT Family Medicine; ATTEND Family Medicine
DX: I11.0 Hypertensive heart disease with heart failure (principal); I50.33 Acute on chronic diastolic (congestive) heart failure; J96.21 Acute and chronic respiratory failure with hypoxia; J44.1 Chronic obstructive pulmonary disease with (acute) exacerbation; N39.0 Urinary tract infection, site not specified; Z66 Do not resuscitate; F32.9 Major depressive disorder, single episode, unspecified; F41.1 Generalized anxiety disorder; F39 Unspecified mood [affective] disorder; M62.838 Other muscle spasm; G62.9 Polyneuropathy, unspecified; K21.9 Gastro-esophageal reflux disease without esophagitis; F17.210 Nicotine dependence, cigarettes, uncomplicated; R94.31 Abnormal electrocardiogram [ECG] [EKG]; D53.9 Nutritional anemia, unspecified; G89.29 Other chronic pain; E78.00 Pure hypercholesterolemia, unspecified; Z98.890 Other specified postprocedural states; Z79.899 Other long term (current) drug therapy
CPT/HCPCS: 36415; 36600; 71045; 71260; 73030; 80048; 80053; 80307; 81001; 82803; 83036; 83735; 83880; 84100; 84484; 85025; 85379; 85610; 87502; 93005; 93010; 93306; 93971; 94640; 94660; 94667; 94668; 94762; 97162; 97166; 97530; 97535; 99285-25; A9270; J0696; J1650; J1940; J3475; J7512; Q0177; U0002